=== PATIENT | female | born 1990 | race Two or more races ===

== ENCOUNTER 2024-05-12 06:34 | Day surgery (SDC) | payer OTHER ==
[2024-05-05 10:15] LABS: HEMOGLOBIN 12.6 g/dL (12.0-15.00); MEAN CELL VOLUME 86.7 fL (80.00-100.00); MEAN CORPUSCULAR HEMOGLOBIN 29.6 pg (27.00-32.0); MEAN CORPUSCULAR HGB CONC 34.2 g/dl (32.0-36.0); PLATELET COUNT 289 K/uL (150-450); RED BLOOD COUNT 4.26 M/uL (4.00-6.00); RED CELL DISTRIBUTION WIDTH 13.1 % (11.5-14.5)
[2024-05-05 10:15] LABS: URINE APPEARANCE Clear; URINE BILIRRUBIN Negative (NEGATIVE); URINE BLOOD Moderate; URINE COLOR Yellow; URINE GLUCOSE Negative (NEGATIVE); URINE KETONE Trace (NEGATIVE); URINE LEUKOCYTE Negative; URINE NITRATE Negative; URINE PROTEIN Negative (NEGATIVE); URINE UROBILINOGEN 0.2 E.U./dl
[2024-05-05 10:24] LABS: URINE BACTERIA 157.4 uL (0.0-1933); URINE EPITHELIAL CELLS 7.2 uL (0.0-38.8); URINE RBC 6.7 uL (0.0-20.8); URINE WBC 3.8 uL (0.0-23.2)
[2024-05-05 10:27] LABS: URINE CAST 0.15 uL (0.0-1.40)
[2024-05-05 10:30] LABS: INR 1.08; PARTIAL THROMBOPLASTIN TIME 29.4 SECONDS (22.0-34.0)
[2024-05-05 10:32] LABS: PROTHROMBIN TIME 11.7 SECONDS (9.0-11.5)
[2024-05-05 12:04] LABS: BILIRUBIN TOTAL 0.68 mg/dL (0.3-1.2); CALCIUM 8.8 mg/dL (8.5-10.1); CREATININE SERUM 0.68 mg/dL (0.55-1.02); GFR 97.9; GLOBULINA 3.3 G/DL (2.4-3.5); POTASSIUM 4.1 mEq/L (3.5-5.1); TOTAL PROTEIN 7.3 gm/dL (6.4-8.2); TSH 1.35 uIU/mL (0.358-3.74)
[2024-05-12] MEDS ORDERED: CEFOXITIN SODIUM 2,000 MG VIAL IV ONE (10:37)
[2024-05-12] MEDS ORDERED: POVIDONE-IODINE 118 ML BOTT TOP ONE (10:37)
[2024-05-12] MEDS ORDERED: PROMETHAZINE HCL 50 MG/ML AMPUL IM ONE (11:45)
[2024-05-12] MEDS ORDERED: MORPHINE SULFATE 4 MG/ML VIAL IV PRN (11:45)
[2024-05-12] MEDS ORDERED: MORGIDOX100 MG PO (11:46)
[2024-05-12] MEDS ORDERED: NAPR500T14 PO (11:46)
[2024-05-12] MEDS ORDERED: ONDANSETRON HCL 2 MG/ML VIAL ONE (12:09)
[2024-05-12] MEDS ORDERED: ONDANSETRON HCL 2 MG/ML VIAL IV ONE (12:10)
[2024-05-12] MEDS ORDERED: MORPHINE SULFATE 4 MG/ML VIAL IV ONE ×2 (12:15→12:45)
== END 2024-05-12 16:15 | disposition home or self-care (01) ==
LOC: CIR.AMB 06:34
PROVIDERS: ATTEND Obstetrics & Gynecology
DX: D25.0 Submucous leiomyoma of uterus (principal); N84.0 Polyp of corpus uteri; N92.0 Excessive and frequent menstruation with regular cycle